=== PATIENT | male | born 1975 | race Caucasian/White ===

== ENCOUNTER 2018-02-05 10:03 | Emergency (ER) | payer BC ==
[~2018-02-05] VITALS: Ht 177.8 cm; Wt 109.0 kg
[2018-02-05 10:12] VITALS: BP 107/74
[2018-02-05] MEDS ORDERED: METHOCARBAMOL 750 MG TABLET ONE (11:10)
[2018-02-05] MEDS ORDERED: KETOROLAC 30 MG/1 ML ONE (11:10)
[2018-02-05] MEDS ORDERED: METHOCARBAMOL 750 MG TABLET PO ONE (11:30)
[2018-02-05] MEDS ORDERED: KETOROLAC 30 MG/1 ML IM ONE (11:30)
[2018-02-05] MEDS ORDERED: HYDROmorphone 2 MG/ML, 1ML ONE (12:46)
[2018-02-05] MEDS ORDERED: ONDANSETRON ODT 4 MG ONE (12:46)
[2018-02-05] MEDS ORDERED: ONDANSETRON ODT 4 MG PO ONE (13:00)
[2018-02-05] MEDS ORDERED: HYDROmorphone 2 MG/ML, 1ML IM ONE (13:00)
== END 2018-02-05 12:55 | disposition home or self-care (01) ==
LOC: ED 12:45
DX: M54.42 Lumbago with sciatica, left side (principal); F17.200 Nicotine dependence, unspecified, uncomplicated
CPT/HCPCS: 72110; 96372; 99284; J1170; J1885; Q0162